=== PATIENT | male | born 1980 ===

== ENCOUNTER 2016-09-12 20:23 | Emergency (ER) | payer MEDICARE ==
[2016-09-12 20:23] VITALS: BMI 28.3
[2016-09-12 20:32] VITALS: RESP 16; TEMP 98.4; O2SAT 100
[2016-09-12] MEDS ORDERED: Sodium Chloride 0.9% 1,000 ML IV STA (20:44)
[2016-09-12] MEDS ORDERED: DiphenhydrAMINE 50 mg/ml Inj IVP STA (20:44)
--- NOTE | 2016-09-12 20:46 | ED PDOC ---
Arrival/HPI - General Chief Complaint: Headache Time Seen by Provider: 09/12/16 20:37 Historian: Patient - History of Present Illness Narrative History of Present Illness (Text): 09/12/16 20:40 Abdirizak Mariscal is a 35 year old male, whose past medical history includes bipolar disorder, depression, and herniated disc, presents to the Emergency department complaining of alcocer. Patient reports this has been happening for several weeks, but it became worse one week ago. Patient denies chest pain, shortness of breath, fever, chills, cough, nausea, vomiting, diarrhea, abdominal pain, dizziness or other complaints. no neck pain,stiffness, blurry vision. PMD: Dr. Basil Shahid Time/Duration: 1 week Symptom Onset: Gradual Symptom Course: Worsening Modifying Factors (Text): discomfort when turning head and pain down the spine Associated Symptoms (Text): none Past Medical History - Provider Review Nursing Documentation Reviewed: Yes - Tetanus Immunization Tetanus Immunization: Unknown - Past Medical History Past Medical History: No Previous - Cardiac Hx Cardiac Disorders: No - Pulmonary Hx Respiratory Disorders: No - Neurological Hx Neurological Disorder: No - HEENT Hx HEENT Disorder: No - Renal Hx Renal Disorder: No - Endocrine/Metabolic Hx Endocrine Disorders: No - Hematological/Oncological Hx Blood Disorders: No - Integumentary Hx Dermatological Disorder: No - Musculoskeletal/Rheumatological Hx Musculoskeletal Disorders: Yes Hx Herniated Disk: Yes - Gastrointestinal Hx Gastrointestinal Disorders: No - Genitourinary/Gynecological Hx Genitourinary Disorders: No - Psychiatric Hx Psychophysiologic Disorder: Yes Hx Bipolar Disorder: Yes Hx Depression: Yes Hx Substance Use: No - Surgical History Hx Appendectomy: Yes - Suicidal Assessment Feels Threatened In Home Enviroment: No Family/Social History - Physician Review Nursing Documentation Reviewed: Yes Family/Social History: Unknown Family HX Smoking Status: Light Smoker < 10 Cigarettes Daily Hx Alcohol Use: Yes Hx Substance Use: No Hx Substance Use Treatment: No Allergies/Home Meds Allergies/Adverse Reactions: Allergies No Known Allergies Allergy (Verified 04/07/13 11:30) Home Medications: Home Meds Medication Instructions Recorded Confirmed ALPRAZolam [Xanax] 0.25 mg PO DAILY 09/12/16 09/12/16 Oxycodone HCl/Acetaminophen 1 each PO Q6H PRN 09/12/16 09/12/16 [Endocet 10-325 mg Tablet] QUEtiapine [SEROquel] 100 mg PO HS 09/12/16 09/12/16 oxyCODONE [oxyCONTIN Extended 40 mg PO BID 09/12/16 09/12/16 Release Tab] tiZANidine [Zanaflex] 4 mg PO DAILY 09/12/16 09/12/16 Review of Systems - Physician Review All systems were reviewed & negative as marked: Yes - Review of Systems Constitutional: absent: Fevers Respiratory: absent: SOB Cardiovascular: absent: Chest Pain Gastrointestinal: absent: Abdominal Pain Musculoskeletal: Back Pain (pain radiates down the spine) Neurological: Headache Physical Exam Vital Signs Temp Pulse Resp BP Pulse Ox 09/12/16 23:21 80 16 120/72 100 09/12/16 20:31 98.4 F 81 16 115/77 100 Temperature: Afebrile Blood Pressure: Normal Pulse: Regular Respiratory Rate: Normal Appearance: Positive for: Well-Appearing, Non-Toxic, Comfortable Pain Distress: None Mental Status: Positive for: Alert and Oriented X 3 - Systems Exam Head: Present: Atraumatic, Normocephalic Pupils: Present: PERRL Extroacular Muscles: Present: EOMI Conjunctiva: Present: Normal Mouth: Present: Moist Mucous Membranes Neck: Present: Normal Range of Motion Respiratory/Chest: Present: Clear to Auscultation, Good Air Exchange. No: Respiratory Distress, Accessory Muscle Use Cardiovascular: Present: Regular Rate and Rhythm, Normal S1, S2. No: Murmurs Abdomen: Present: Normal Bowel Sounds. No: Tenderness, Distention, Peritoneal Signs Back: Present: Normal Inspection Upper Extremity: Present: Normal Inspection. No: Cyanosis, Edema Lower Extremity: Present: Normal Inspection. No: Edema Neurological: Present: GCS=15, CN II-XII Intact, Speech Normal Skin: Present: Warm, Dry, Normal Color. No: Rashes Psychiatric: Present: Alert, Oriented x 3, Normal Insight, Normal Concentration Medical Decision Making ED Course and Treatment: 09/12/16 20:40 Impression: 35 year old male with alcocer. no thunderclap freatures. no meningmus. Plan: -- CT Head without contrast -- Labs -- Benadryl, Reglan, and Sodium Chloride -- Reassess and disposition Progress Notes: 09/12/16 21:33 CT Head Without Intravenous Contrast FINDINGS: Limitations: Motion artifact - mild. Brain: No intracranial hemorrhage. No mass. No definite edema. Ventricles: No hydrocephalus. Bones/joints: No acute fracture. Soft tissues: Unremarkable. Sinuses: Scattered minimal mucosal thickening. Mastoid air cells: No mastoid effusion. Orbits: Unremarkable as visualized. IMPRESSION: 1. No definite acute intracranial abnormality. 2. Incidental/non-acute findings are described above. 09/13/16 01:08 pt reassessed. states all symptoms resolved. smiling. neuro intact. ambulatory steady gait. pt verbalized feels well for d/c. no meningmus. neck supple. neuro intact. advise outpt fu and return precautions - Lab Interpretations Lab Results: 09/12/16 22:12 09/12/16 22:12 Lab Results 09/12/16 22:12: Sodium 136, Potassium 4.0, Chloride 99, Carbon Dioxide 32, Anion Gap 9 L, BUN 17, Creatinine 0.8, Est GFR ( Amer) > 60, Est GFR (Non -Af Amer) > 60, Random Glucose 76, Calcium 9.0, Total Bilirubin 0.2, AST 45, ALT 48, Alkaline Phosphatase 58, Total Protein 6.3, Albumin 3.5, Globulin 2.8, Albumin/Globulin Ratio 1.3 09/12/16 22:12: PT 10.2, INR 0.94, APTT 29.6 09/12/16 22:12: WBC 5.7, RBC 3.88, Hgb 11.4 L, Hct 35.3 L, MCV 91.0, MCH 29.4, MCHC 32.3, RDW 13.1, Plt Count 253, MPV 8.8, Gran % 49.0 L, Lymph % (Auto) 37.3 H, Evangeline % (Auto) 9.8 H, Eos % (Auto) 3.7, Baso % (Auto) 0.2, Gran # 2.79, Lymph # 2.1, Evangeline # 0.6, Eos # 0.2, Baso # 0.01 I have reviewed the lab results: Yes - RAD Interpretation Radiology Orders: 09/12/16 20:43 HEAD W/O CONTRAST [CT] Stat - Medication Orders Current Medication Orders: Discontinued Medications Diphenhydramine HCl (Benadryl) 25 mg IVP STAT STA Stop: 09/12/16 20:45 Last Admin: 09/12/16 21:05 Dose: 25 mg Sodium Chloride (Sodium Chloride 0.9%) 1,000 mls @ 999 mls/hr IV .Q1H1M STA Stop: 09/12/16 21:44 Last Admin: 09/12/16 21:05 Dose: 999 mls/hr Metoclopramide HCl (Reglan) 10 mg IVP STAT STA Stop: 09/12/16 20:45 Last Admin: 09/12/16 21:05 Dose: 10 mg - Scribe Statement The provider has reviewed the documentation as recorded by the Scribe 09/12/2016 Angelia Appiah Provider Scribe Attestation: All medical record entries made by the Scribe were at my direction and personally dictated by me. I have reviewed the chart and agree that the record accurately reflects my personal performance of the history, physical exam, medical decision making, and the department course for this patient. I have also personally directed, reviewed, and agree with the discharge instructions and disposition. Disposition/Present on Arrival - Present on Arrival Any Indicators Present on Arrival: No History of DVT/PE: No History of Uncontrolled Diabetes: No Urinary Catheter: No History of Decub. Ulcer: No History Surgical Site Infection Following: None - Disposition Have Diagnosis and Disposition been Completed?: Yes Diagnosis: Headache Disposition: HOME/ ROUTINE Disposition Time: 22:46 Condition: STABLE Discharge Instructions (ExitCare): Acute Headache (ED) Additional Instructions: please follow up with specailist. return to emergency room with worsening symptoms or concerns. Prescriptions: Acetaminophen/Butalbital/Caf [Fioricet] 1 tab PO Q8 PRN #20 tab PRN Reason: Headache Referrals: Dax Perdomo MD [Staff Provider] - Follow up with primary David Perdomo MD [Staff Provider] - Follow up with primary Marianne Sapp DO [Primary Care Provider] - Follow up with primary Forms: [employer] ([place] Citizen)
--- NOTE | 2016-09-12 21:30 | CT ---
EXAM: CT Head Without Intravenous Contrast CLINICAL HISTORY: 35 years old, male; Pain; Headache; Headache not specified; Additional info: PURVIS TECHNIQUE: Axial computed tomography images of the head/brain without intravenous contrast. This CT exam was performed using one or more of the following dose reduction techniques: automated exposure control, adjustment of the mA and/or kV according to patient size, and/or use of iterative reconstruction technique. COMPARISON: No relevant prior studies available. FINDINGS: Limitations: Motion artifact - mild. Brain: No intracranial hemorrhage. No mass. No definite edema. Ventricles: No hydrocephalus. Bones/joints: No acute fracture. Soft tissues: Unremarkable. Sinuses: Scattered minimal mucosal thickening. Mastoid air cells: No mastoid effusion. Orbits: Unremarkable as visualized. IMPRESSION: 1. No definite acute intracranial abnormality. 2. Incidental/non-acute findings are described above.
[2016-09-12 22:22] LABS: BASO # 0.01 K/mm3 (0.0-2.0); BASO % 0.2 % (0.0-3.0); EOS # 0.2 (0.0-0.7); EOS % 3.7 % (1.5-5.0); GRAN # 2.79 (1.4-6.5); HEMOGLOBIN 11.4 gm/dL (14.0-18.0); LYMPH # 2.1 (1.2-3.4); LYMPH % 37.3 % (22.0-35.0); MEAN CORPUSCULAR HEMOGLOBIN 29.4 pg (25.0-35.0); MEAN CORPUSCULAR HGB CONC 32.3 g/dl (31.0-37.0); MEAN PLATELET VOLUME 8.8 fl (7.0-11.0); MONO # 0.6 (0.1-0.6); MONO % 9.8 % (1.0-6.0); PLATELET COUNT 253 10^3/uL (120.0-450.0); RBC 3.88 10^6/uL (3.5-6.1); RED CELL DISTRIBUTION WIDTH 13.1 % (11.5-14.5); WHITE BLOOD COUNT 5.7 10^3/ul (4.5-11.0)
[2016-09-12 22:33] LABS: ALB/GLOB RATIO 1.3 (1.1-1.8); ALBUMIN 3.5 g/dL (3.0-4.8); ALT/SGPT 48 U/L (7-56); AST/SGOT 45 U/L (15-59); BLOOD UREA NITROGEN 17 mg/dL (7-21); GFR AFRICAN-AMERICAN > 60; GFR NON-AFRICAN AMERICAN > 60
[2016-09-12 22:39] LABS: INR 0.94 (0.93-1.08); PARTIAL THROMBOPLASTIN TIME 29.6 Seconds (23.7-30.8); PROTHROMBIN TIME 10.2 Seconds (9.9-11.8)
[2016-09-12 23:23] VITALS: BP 120/72; PULSE 80
== END 2016-09-12 23:23 | disposition home or self-care (01) ==
LOC: ED 20:23
DX: R51 Headache (principal)
CPT/HCPCS: 70450; 80053; 85025; 85610; 85730; 96374; 96375; 99285; J1200; J2765; J7040

== ENCOUNTER 2017-09-28 18:33 | Emergency (ER) | payer MEDICARE, OTHER ==
[2017-09-28 18:33] VITALS: BMI 28.3
[2017-09-28] MEDS ORDERED: Morphine 4 mg/ml ISec IVP STA (20:11)
[2017-09-28] MEDS ORDERED: Sodium Chloride 0.9% 1,000 ML IV SCH (20:15)
[2017-09-28] MEDS ORDERED: Morphine 4 mg/ml ISec ONE (20:17)
--- NOTE | 2017-09-28 20:54 | ED PDOC ---
Arrival/HPI - General Chief Complaint: Abdominal Pain Time Seen by Provider: 09/28/17 20:11 Historian: Patient - History of Present Illness Narrative History of Present Illness (Text): 09/28/17 20:13 A 36 year old male, whose past medical history includes back pain, bipolar, depression and appendectomy, presents to the emergency department complaining of upper right abdominal pain. Patient reports pain radiates to his back and pain is constant. Patient denies any fever, chills, chest pain, shortness of breath, nausea, vomiting, diarrhea, urinary symptoms, neck pain, headache, dizziness, or any other complaints. Time/Duration: Other (a couple of days ) Symptom Onset: Gradual Symptom Course: Unchanged Activities at Onset: Light Context: Home Past Medical History - Provider Review Nursing Documentation Reviewed: Yes - Tetanus Immunization Tetanus Immunization: Unknown - Past Medical History Past Medical History: No Previous - Cardiac Hx Cardiac Disorders: No - Pulmonary Hx Respiratory Disorders: No - Neurological Hx Neurological Disorder: No - HEENT Hx HEENT Disorder: No - Renal Hx Renal Disorder: No - Endocrine/Metabolic Hx Endocrine Disorders: No - Hematological/Oncological Hx Blood Disorders: No - Integumentary Hx Dermatological Disorder: No - Musculoskeletal/Rheumatological Hx Musculoskeletal Disorders: Yes Hx Herniated Disk: Yes - Gastrointestinal Hx Gastrointestinal Disorders: No - Genitourinary/Gynecological Hx Genitourinary Disorders: No - Psychiatric Hx Psychophysiologic Disorder: Yes Hx Bipolar Disorder: Yes Hx Depression: Yes Hx Substance Use: No - Surgical History Hx Appendectomy: Yes - Suicidal Assessment Feels Threatened In Home Enviroment: No Family/Social History - Physician Review Nursing Documentation Reviewed: Yes Family/Social History: Unknown Family HX Smoking Status: Light Smoker < 10 Cigarettes Daily Hx Alcohol Use: Yes Hx Substance Use: No Hx Substance Use Treatment: No Allergies/Home Meds Allergies/Adverse Reactions: Allergies No Known Allergies Allergy (Verified 09/28/17 19:36) Home Medications: Home Meds Medication Instructions Recorded Confirmed Oxycodone HCl/Acetaminophen 1 each PO Q6H PRN 09/12/16 09/28/17 [Endocet 10-325 mg Tablet] QUEtiapine [SEROquel] 100 mg PO HS 09/12/16 09/28/17 tiZANidine [Zanaflex] 4 mg PO DAILY 09/12/16 09/28/17 Review of Systems - Physician Review All systems were reviewed & negative as marked: Yes - Review of Systems Constitutional: absent: Fevers, Night Sweats Respiratory: absent: SOB Cardiovascular: absent: Chest Pain Gastrointestinal: Abdominal Pain (+upper right). absent: Diarrhea, Nausea, Vomiting Genitourinary Male: absent: Urinary Output Changes Musculoskeletal: Back Pain (+pain radiates to back ). absent: Neck Pain Neurological: absent: Headache, Dizziness Physical Exam Vital Signs Reviewed: Yes Vital Signs Temp Pulse Resp BP Pulse Ox 09/28/17 22:46 55 L 18 122/74 100 09/28/17 19:38 97.8 F 55 L 17 120/81 100 Temperature: Afebrile Blood Pressure: Normal Pulse: Bradycardic Respiratory Rate: Normal Appearance: Positive for: Well-Appearing, Non-Toxic, Comfortable Pain Distress: None Mental Status: Positive for: Alert and Oriented X 3 - Systems Exam Head: Present: Atraumatic, Normocephalic Pupils: Present: PERRL Extroacular Muscles: Present: EOMI Conjunctiva: Present: Normal Mouth: Present: Moist Mucous Membranes Neck: Present: Normal Range of Motion Respiratory/Chest: Present: Clear to Auscultation, Good Air Exchange. No: Respiratory Distress, Accessory Muscle Use Cardiovascular: Present: Regular Rate and Rhythm, Normal S1, S2. No: Murmurs Abdomen: Present: Tenderness (+right upper quadrant), Other (Positive blunt's sign). No: Distention, Normal Bowel Sounds, Peritoneal Signs, Rebound, Guarding , McBurney's Point Tender, Rovsing's Sign Present, Hernias, Feeding Tubes, Ostomy Tubes, Mass/Organomegaly, Scars Back: Present: Normal Inspection Upper Extremity: Present: Normal Inspection. No: Cyanosis, Edema Lower Extremity: Present: Normal Inspection. No: Edema Neurological: Present: GCS=15, CN II-XII Intact, Speech Normal Skin: Present: Warm, Dry, Normal Color. No: Rashes Psychiatric: Present: Alert, Oriented x 3, Normal Insight, Normal Concentration Medical Decision Making ED Course and Treatment: 09/28/17 20:23 Impression: 36 year old male presenting to the Emergency Department complaining of abdominal pain. Plan: -- Comp metabolic panel -- Lipase -- CBC -- IV Fluids -- Urinalysis -- Morphine -- Ultrasound of gallbladder and pancreas -- Reassess and disposition Progress Notes: US gallbladder/pancreas reviewed, shows: IMPRESSION: No acute findings. Nonspecific Pancreatic duct dilatation. Hepatic steatosis 09/28/17 21:59 labs ok, US shows nonspecific grover duct dilatation, with the pain in the general area will extend workup with CT 09/29/17 00:05 CT abd/pelvis reviewed, shows: IMPRESSION: 7 mm thickness ? of pericardial effusion at the base. Questionable wall thickening of the gallbladder. 09/29/17 00:08 CT report, on US there is no acute pathology which i feel negates the suggestive read. The ? of pericardial effusion, if truely present, would be considered trace and would have any hemodynamic consequence and does not fit the current clinical picture. Patient seen for right upper quad pain, workup unremarkable, will refer patient to pcp and potential GI referral.Patient remained stable throughout ED course and despite his complaint of pain appeared comfortable. Furthermore, I did not feel comfortable providing repeat dose of opioid analgesic considering the abnormal urine drug screen. 09/29/17 00:13 - Lab Interpretations Lab Results: 09/28/17 20:27 09/28/17 20:27 Lab Results 09/28/17 22:54: Urine Opiates Screen Positive H, Urine Methadone Screen Negative , Ur Barbiturates Screen Positive H, Ur Phencyclidine Scrn Negative, Ur Amphetamines Screen Negative, U Benzodiazepines Scrn Negative, U Oth Cocaine Metabols Positive H, U Cannabinoids Screen Negative 09/28/17 22:54: Urine Color Light yellow, Urine Appearance Clear, Urine pH 6.5, Ur Specific [place] 1.010, Urine Protein Negative, Urine Glucose (UA) Negative, Urine Ketones Negative, Urine Blood Negative, Urine Nitrate Negative, Urine Bilirubin Negative, Urine Urobilinogen 0.2, Ur Leukocyte Esterase Negative 09/28/17 20:27: Sodium 142, Potassium 3.9, Chloride 103, Carbon Dioxide 28, Anion Gap 15, BUN 16, Creatinine 0.8, Est GFR ( Amer) > 60, Est GFR (Non- Af Amer) > 60, Random Glucose 95, Calcium 10.1, Total Bilirubin 0.2, AST 18, ALT 29, Alkaline Phosphatase 65, Total Protein 7.2, Albumin 4.6, Globulin 2.6, Albumin/Globulin Ratio 1.8, Lipase 47 09/28/17 20:27: WBC 10.6 D, RBC 4.39, Hgb 12.8 L, Hct 39.5 L, MCV 90.0, MCH 29.2, MCHC 32.4, RDW 13.7, Plt Count 384, MPV 9.6, Gran % 53.7, Lymph % (Auto) 38.3 H, [place] % (Auto) 6.9 H, Eos % (Auto) 0.9 L, Baso % (Auto) 0.2, Gran # 5.68 , Lymph # (Auto) 4.1 H, [place] # (Auto) 0.7 H, Eos # (Auto) 0.1, Baso # (Auto) 0.02 - RAD Interpretation Radiology Orders: 09/28/17 20:11 GALLBLADDER & PANCREAS [US] Stat 09/28/17 21:47 ABDOMEN & PELVIS [ABD PELVIS PO & IV CONTRAST] [CT] Stat - Medication Orders Current Medication Orders: Sodium Chloride (Sodium Chloride 0.9%) 1,000 mls @ 150 mls/hr IV .Q6H40M SANDOVAL Last Admin: 09/28/17 20:25 Dose: 150 mls/hr eMAR Start Stop Document 09/28/17 20:25 HI (Rec: 09/28/17 20:25 [place] [id number]) Intravenous Solution Start Date 09/28/17 Start Time 20:25 Discontinued Medications Acetaminophen (Tylenol 325mg Tab) 975 mg PO STAT STA Stop: 09/28/17 22:20 Last Admin: 09/28/17 22:27 Dose: 975 mg MAR Pain/Vitals Document 09/28/17 22:27 HI (Rec: 09/28/17 22:28 [place] [id number]) Pain Reassessment Is This A Pain ReAssessment? Yes Sleep Is patient sleeping during reassessment? No Presence of Pain Presence of Pain Yes Ketorolac Tromethamine (Toradol) 30 mg IVP STAT STA Stop: 09/28/17 21:08 Last Admin: 09/28/17 21:19 Dose: 30 mg MAR Pain Assessment Document 09/28/17 21:19 HI (Rec: 09/28/17 21:20 [email or web address]) Pain Reassessment Is this a pain reassessment? Yes Sleep Is patient sleeping during reassessment? No Presence of Pain Presence of Pain Yes IVP Administration Document 09/28/17 21:19 HI (Rec: 08/20/18 21:20 [email or web address]) Charges for Administration # of IVP Administrations 1 Morphine Sulfate (Morphine) 4 mg IVP STAT STA Stop: 09/28/17 20:12 Last Admin: 09/28/17 20:22 Dose: 4 mg MAR Pain Assessment Document 09/28/17 20:22 HI (Rec: 09/28/17 20:22 [email or web address]) Pain Reassessment Is this a pain reassessment? No Sleep Is patient sleeping during reassessment? No Presence of Pain Presence of Pain Yes IVP Administration Document 09/28/17 20:22 HI (Rec: 09/28/17 20:22 [email or web address] Charges for Administration # of IVP Administrations 1 Re-Assess: MAR Pain Assessment Document 09/28/17 21:22 HI (Rec: 09/28/17 22:23 [email or web address]) Pain Reassessment Is this a pain reassessment? Yes Sleep Is patient sleeping during reassessment? No Presence of Pain Presence of Pain Yes - Scribe Statement The provider has reviewed the documentation as recorded by the Scribraymond Hutchinson All medical record entries made by the Scribe were at my direction and personally dictated by me. I have reviewed the chart and agree that the record accurately reflects my personal performance of the history, physical exam, medical decision making, and the department course for this patient. I have also personally directed, reviewed, and agree with the discharge instructions and disposition. Disposition/Present on Arrival - Present on Arrival Any Indicators Present on Arrival: No History of DVT/PE: No History of Uncontrolled Diabetes: No Urinary Catheter: No History of Decub. Ulcer: No History Surgical Site Infection Following: None - Disposition Have Diagnosis and Disposition been Completed?: Yes Diagnosis: Abdominal pain Disposition: HOME/ ROUTINE Disposition Time: 00:11 Patient Plan: Discharge Patient Problems: Current Active Problems Problem Status Onset Abdominal pain Acute Condition: STABLE Discharge Instructions (ExitCare): Acute Abdomen (Belly Pain), Adult (DC) Print Language: YEMENI Additional Instructions: Follow up with a primary care doctor. JESSICA HAIDER JR, thank you for letting us take care of you today. Your provider was Dr. Kamran Shelby and you were treated for abdominal pain. The emergency medical care you received today was directed at your acute symptoms. If you were prescribed any medication, please fill it and take as directed. It may take several days for your symptoms to resolve. Return to the Emergency Department if your symptoms worsen, do not improve, or if you have any other problems. Please contact your doctor or call one of the physicians/clinics you have been referred to that are listed on the Patient Visit Information form that is included in your discharge packet. Bring any paperwork you were given at discharge with you along with any medications you are taking to your follow up visit. Our treatment cannot replace ongoing medical care by a primary care provider outside of the emergency department. Thank you for allowing the [facility] team to be part of your care today. If you had an X-Ray or CT scan: A Radiologist will review the ED reading if any change in treatment is needed we will contact you. If you had a blood, urine, or wound culture: It will take several days for the results, if any change in treatment is needed we will contact you. If you had an STI test: It will take 48 hours for the results. Please call after 1 week if you have not heard back. Prescriptions: Ibuprofen [Motrin Tab] 600 mg PO QID #42 tab Referrals: [facility] [Outside] - Follow up with primary Ana Sy MD [Medical Doctor] - Follow up with primary Forms: [employer] ([place]), WORK NOTE
[2017-09-28 21:12] LABS: BASO # 0.02 K/mm3 (0.0-2.0); BASO % 0.2 % (0.0-3.0); EOS # 0.1 (0.0-0.7); EOS % 0.9 % (1.5-5.0); GRAN # 5.68 (1.4-6.5); GRAN % 53.7 % (50.0-68.0); HEMOGLOBIN 12.8 g/dL (14.0-18.0); LYMPH # 4.1 (1.2-3.4); LYMPH % 38.3 % (22.0-35.0); MEAN CORPUSCULAR HEMOGLOBIN 29.2 pg (25.0-35.0); MEAN CORPUSCULAR HGB CONC 32.4 g/dl (31.0-37.0); MEAN PLATELET VOLUME 9.6 fl (7.0-11.0); MONO # 0.7 (0.1-0.6); MONO % 6.9 % (1.0-6.0); RBC 4.39 10^6/uL (3.5-6.1); RED CELL DISTRIBUTION WIDTH 13.7 % (11.5-14.5); WHITE BLOOD COUNT 10.6 10^3/ul (4.5-11.0)
[2017-09-28 21:21] LABS: ALB/GLOB RATIO 1.8 (1.1-1.8); ALBUMIN 4.6 g/dL (3.0-4.8); ALT/SGPT 29 U/L (7-56); AST/SGOT 18 U/L (17-59); BLOOD UREA NITROGEN 16 mg/dL (7-21); CALCIUM 10.1 mg/dL (8.4-10.5); GFR NON-AFRICAN AMERICAN > 60; LIPASE 47 U/L (23-300)
[2017-09-28] MEDS ORDERED: Iohexol 240 (50 ml) ONE (21:50)
[2017-09-28] MEDS ORDERED: Iohexol 350 MG/100 ML VIAL ONE (22:57)
[2017-09-28 23:19] LABS: PH,URINE 6.5 (4.7-8.0); URINE BILIRUBIN NEGATIVE (NEGATIVE); URINE BLOOD NEGATIVE (NEGATIVE); URINE GLUCOSE (UA) NEGATIVE (NEGATIVE); URINE LEUKOCYTE ESTERASE NEGATIVE Leu/uL (NEGATIVE); URINE PROTEIN NEGATIVE mg/dL (<30 mg/dL); URINE UROBILINOGEN 0.2 E.U./dL (<1 E.U./dL)
[2017-09-28 23:23] LABS: BARBITURATES, UR POSITIVE (NEGATIVE); BENZODIAZEPINES, UR NEGATIVE (NEGATIVE); OPIATES, UR POSITIVE (NEGATIVE); PHENCYCLIDINE, UR NEGATIVE (NEGATIVE)
[2017-09-28 23:27] LABS: URINE APPEARANCE CLEAR (CLEAR); URINE COLOR LIGHT YELLOW (YELLOW)
[2017-09-29 00:16] VITALS: BP 119/72; PULSE 60; RESP 16; TEMP 98.2; O2SAT 98
--- NOTE | 2017-09-29 08:56 | US ---
Date of service: 09/28/2017 HISTORY: Abdominal pain COMPARISON: None. TECHNIQUE: Sonographic evaluation of the right upper quadrant of the abdomen. FINDINGS: LIVER: Measures 15.2 cm in length. Normal echogenicity of the liver parenchyma. No mass. No intrahepatic bile duct dilatation. GALLBLADDER: There are no gallstones, wall thickening or pericholecystic fluid. The sonographic Smiley's sign is negative. COMMON BILE DUCT: Measures 4.1 mm. No stones. No dilatation. PANCREAS: Unremarkable as visualized. No mass. No ductal dilatation. RIGHT KIDNEY: Measures 11.1 cm in length. Normal echogenicity. No calculus, mass, or hydronephrosis. AORTA: No aneurysmal dilatation. IVC: Unremarkable. OTHER FINDINGS: None . IMPRESSION: No cholelithiasis or biliary dilatation. A preliminary report was provided by [employer].
--- NOTE | 2017-09-29 10:27 | CT ---
Date of service: 09/28/2017 PROCEDURE: CT Abdomen and Pelvis with contrast HISTORY: right sided pain, dilated pancreatic duct COMPARISON: None. TECHNIQUE: Contrast dose: 100 cc of Omni 350 Radiation dose: Total exam DLP = 787 mGy-cm. This CT exam was performed using one or more of the following dose reduction techniques: Automated exposure control, adjustment of the mA and/or kV according to patient size, and/or use of iterative reconstruction technique. FINDINGS: LOWER THORAX: Minimal pericardial effusion LIVER: Unremarkable. No gross lesion or ductal dilatation. GALLBLADDER AND BILE DUCTS: Unremarkable. PANCREAS: Unremarkable. No gross lesion or ductal dilatation. SPLEEN: Unremarkable. ADRENALS: Unremarkable. No mass. KIDNEYS AND URETERS: Unremarkable. No hydronephrosis. No solid mass. VASCULATURE: Unremarkable. No aortic aneurysm. BOWEL: Unremarkable. No obstruction. No gross mural thickening. APPENDIX: Normal appendix. PERITONEUM: Unremarkable. No free fluid. No free air. LYMPH NODES: Unremarkable. No enlarged lymph nodes. BLADDER: Unremarkable. REPRODUCTIVE: Unremarkable. BONES: No acute fracture. OTHER FINDINGS: The report concurs with the preliminary [facility] report IMPRESSION: No acute intra-abdominal findings
== END 2017-09-29 00:16 | disposition home or self-care (01) ==
LOC: ED 18:33
DX: R10.11 Right upper quadrant pain (principal); F17.210 Nicotine dependence, cigarettes, uncomplicated
CPT/HCPCS: 74177; 76705; 80053; 81003; 83690; 85025; 96374; 96375; 99283; G0480; J1885; J2270; J7030; Q9966; Q9967